=== PATIENT | male | born 1955 | race Caucasian/White ===

== ENCOUNTER 2024-08-29 17:07 | Emergency (ER) | payer MEDICARE ==
[~2024-08-29] VITALS: Ht 190.5 cm; Wt 83.5 kg
[2024-08-29] MEDS ORDERED: Vancomycin HCL 1,500 MG in NS 250 ML IV ONE (21:05)
[2024-08-29] MEDS ORDERED: AMOCLA875 PO (23:10)
== END 2024-08-29 23:14 | disposition home or self-care (01) ==
LOC: ER 17:07
DX: L03.115 Cellulitis of right lower limb (principal); Z79.2 Long term (current) use of antibiotics
CPT/HCPCS: 73630; 96365; 96366; 99283-25; J3370; J7050

== ENCOUNTER 2024-09-09 12:43 | Day surgery (SDC) | payer MEDICARE ==
[~2024-09-09] VITALS: Ht 190.5 cm; Wt 80.7 kg
[~2024-09-09 12:43] MED LIST: AMOCLA875 PO; Lactated Ringer's 1,000 ML IV ONE; Lidocaine HCl 2% 10 ML SDA ONE
[2024-09-09] MEDS ORDERED: CeFAZolin Sodium 2,000 MG VIAL ONE (13:07)
[2024-09-09] MEDS ORDERED: METFORMIN HCL500 M2 PO (13:27)
[2024-09-09] MEDS ORDERED: Lactated Ringer's 1,000 ML IV ONE ×2 (13:49→16:20)
--- NOTE | 2024-09-09 13:49 | NUR ---
09/09/24 4789 Genet Jackman PATIENT HAS SCRAPES/SCRATCHES TO SKIN FROM [place] PER HIS REPORT SPOT ON R HAND WHERE [place] IS IS AN OPEN SPOT WHERE PATIENT REPORTS HE SCRAPED HIMSELF ON A METAL FENCE A FEW DAYS AGO. LAST TETANUS SHOT PER PATIENT WAS [address] BERG OF WOUNDS.
[2024-09-09] MEDS ORDERED: propofoL 20 ML IV ONE (15:10)
[2024-09-09] MEDS ORDERED: Dexamethasone Sod Phos 10 MG/ML 1ML VIAL ONE (15:11)
[2024-09-09] MEDS ORDERED: Ondansetron HCl 2 MG / ML 2ML Vial ONE (15:11)
--- NOTE | 2024-09-09 15:22 | NUR ---
09/09/24 1522 Bren Yost DRAIN LEFT FOOT
[2024-09-09] MEDS ORDERED: Bupivacaine 0.5% HCl 5 MG/ML 30MLVIAL INJ ONE (15:23)
--- NOTE | 2024-09-09 15:52 | NUR ---
09/09/24 [address] YBARRA AT BEDSIDE. PT AWAKE, ALERT. 1545 UP TO CHAIR, EATING FOOD BROUGHT FROM HOME, AND PROVIDED PO FLUIDS, FLAQUITO WELL. DENIES PAIN AND NAUSEA.
== END 2024-09-09 16:30 | disposition home or self-care (01) ==
LOC: ORSCSDS 12:43
PROVIDERS: Podiatrist Foot & Ankle Surgery
PROC: 0J9Q0ZZ Drainage of Right Foot Subcutaneous Tissue and Fascia, Open Approach (ICD-10-PCS; principal; 2024-09-09 14:15)
DX: L02.611 Cutaneous abscess of right foot (principal); E11.9 Type 2 diabetes mellitus without complications; S91.351A Open bite, right foot, initial encounter; W55.01XA Bitten by cat, initial encounter; Z79.84 Long term (current) use of oral hypoglycemic drugs; F17.220 Nicotine dependence, chewing tobacco, uncomplicated
CPT/HCPCS: 82947; J0690; J1100; J2003; J2405; J2704; J7120